=== PATIENT | female | born 1960 | race Caucasian/White ===

== ENCOUNTER 2020-03-13 10:34 | Emergency (ER) | payer MEDICARE, OTHER ==
[~2020-03-13] VITALS: Ht 157.5 cm; Wt 86.2 kg
[~2020-03-13 10:34] MED LIST: AUGMENTIN 500-1 EACH PO; BACTRIM DS TAB1 EACH PO; DESYREL50 MG PO; MISCELLANEOUS; NORCO 5-325 TA1 EACH PO; PROZAC20 MG PO; SEROQUEL 25 MG25 M1 PO; WELLBUTRIN 100100 MG PO; XANAX 0.5 MG0.5 M1 PO
[2020-03-13 11:27] LABS: ABSOLUTE EOSINOPHILS 0.3 thou/uL (0.0-0.7); ABSOLUTE LYMPHOCYTES 1.5 thou/uL (0.8-5.3); ABSOLUTE MONOCYTES 0.6 thou/uL (0.0-1.2); ABSOLUTE NEUTROPHILS 3.2 thou/uL (1.6-8.1); BASOPHILS 0.7 %; EOSINOPHILS 4.8 %; HEMATOCRIT 41.9 % (37.0-47.0); HEMOGLOBIN 14.2 gm/dL (12.0-15.0); LYMPHOCYTES 26.3 %; MCH 30.2 pg (26.0-34.0); MCV 88.9 fL (80.0-100.0); MPV 7.4 fl. (7.2-11.1); NUCLEATED RBCS 0 /100WBC; PLATELET COUNT* 203 thou/uL (150-400); POLYS 58.2 %; RBC 4.71 mil/uL (4.20-5.00); RDW-CV 12.9 % (10.5-14.5); WBC 5.5 thou/uL (4.0-11.0)
[2020-03-13 11:35] LABS: CALCIUM 8.6 mg/dL (8.5-10.1); CREATININE 1.1 mg/dL (0.6-1.3); POTASSIUM 3.7 mmol/L (3.5-5.1)
[2020-03-13 11:37] LABS: PROTIME 10.3 Seconds (9.20-11.50)
[2020-03-13 11:40] LABS: ALBUMIN 3.4 g/dL (3.4-5.0); TOTAL BILIRUBIN 0.2 mg/dL (<0.1-1.0); TOTAL PROTEIN 6.8 g/dL (6.4-8.2)
[2020-03-13 14:00] VITALS: BP 116/80
--- NOTE | 2020-03-15 14:08 | EKG ---
[place] [address] ELECTROCARDIOGRAM REPORT Name: JOSETTE CAT Room: [facility]#: [id number] Admission: 03/13/20 Attend Phys: Discharge: 03/13/20 Date of : 62 Date of Service: 03/13/20 1042 Report #: [id number] THIS REPORT FOR: //name// [facility] ED Test Date: 2020-03-13 Test Time: 10:42:45 Pat Name: JOSETTE CAT Department: Room: Gender: F Endoscopy Rn: CHANDAN : 1960 Requested By: Aye Stephenson Order Number: [id number] Dhara MD: Rafael Interiano Measurements Intervals [place] Rate: 81 P: 33 [place]: 153 QRS: -18 QRSD: 87 T: 33 QT: 373 QTc: 433 Interpretive Statements Sinus rhythm nonspecific t wave changes Borderline left axis deviation Borderline low voltage, extremity leads Compared to ECG 03/18/2017 10:40:24 no change Electronically Signed On 03-15-2020 14:07:55 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
== END 2020-03-13 14:00 | disposition home or self-care (01) ==
LOC: M.ERS 10:34
PROVIDERS: Personal Emergency Response Attendant
DX: R07.89 Other chest pain (principal); Z20.828 Contact with and (suspected) exposure to other viral communicable diseases; Z90.49 Acquired absence of other specified parts of digestive tract

== ENCOUNTER 2020-11-05 08:39 | Emergency (ER) | payer OTHER, MEDICARE ==
[~2020-11-05] VITALS: Ht 157.5 cm; Wt 86.2 kg
[2020-11-05 10:34] LABS: ABSOLUTE BASOPHILS 0.1 thou/uL (0.0-0.2); ABSOLUTE EOSINOPHILS 0.3 thou/uL (0.0-0.7); ABSOLUTE LYMPHOCYTES 1.5 thou/uL (0.8-5.3); ABSOLUTE MONOCYTES 0.5 thou/uL (0.0-1.2); BASOPHILS 1.3 %; EOSINOPHILS 4.1 %; HEMATOCRIT 43.5 % (37.0-47.0); HEMOGLOBIN 14.5 gm/dL (12.0-15.0); LYMPHOCYTES 23.4 %; MCH 29.5 pg (26.0-34.0); MCHC 33.2 g/dL (28.0-37.0); MCV 88.6 fL (80.0-100.0); MONOCYTES 8.5 %; MPV 7.3 fl. (7.2-11.1); NUCLEATED RBCS 0 /100WBC; PLATELET COUNT* 208 thou/uL (150-400); POLYS 62.7 %; RBC 4.91 mil/uL (4.20-5.00); RDW-CV 12.6 % (10.5-14.5); WBC 6.4 thou/uL (4.0-11.0)
[2020-11-05 10:43] LABS: CALCIUM 10.2 mg/dL (8.5-10.1); CREATININE 1.2 mg/dL (0.6-1.3); POTASSIUM 4.2 mmol/L (3.5-5.1)
[2020-11-05 10:48] LABS: ALBUMIN 3.8 g/dL (3.4-5.0); TOTAL BILIRUBIN 0.4 mg/dL (<0.1-1.0); TOTAL PROTEIN 7.2 g/dL (6.4-8.2)
--- NOTE | 2020-11-05 11:52 | EKG ---
[place] [address] ELECTROCARDIOGRAM REPORT Name: JOSTETE CAT Room: [facility]#: [id number] Admission: 11/05/20 Attend Phys: Discharge: Date of : 62 Date of Service: 11/05/20 0843 Report #: [id number] THIS REPORT FOR: //name// 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: : 1960 Requested By: Roman Gustafson Order Number: [id number] MD: Rafael Interiano Measurements Intervals [place] Rate: 79 P: -16 [place]: 172 QRS: -24 QRSD: 83 T: 34 QT: 347 QTc: 398 Interpretive Statements Sinus rhythm nonspecific t wave changes Borderline left axis deviation Borderline low voltage, extremity leads Compared to ECG 03/13/2020 10:42:45 no change Electronically Signed On 11-05-2020 11:52:28 CDT by Rafael Interiano [email or web address] <ELECTRONICALLY SIGNED> By: Rafael Interiano MD, [facility] 11/05/20 1152 0843 0843 Rafael Interiano MD, [facility] /EPI
[2020-11-05] MEDS ORDERED: VISTARIL 25 MG25 M1 PO (12:22)
[2020-11-05 12:35] VITALS: BP 126/78
== END 2020-11-05 12:35 | disposition home or self-care (01) ==
LOC: M.ERS 08:39
PROVIDERS: Physician Assistant
DX: F41.9 Anxiety disorder, unspecified (principal); F32.9 Major depressive disorder, single episode, unspecified; Z79.899 Other long term (current) drug therapy

== ENCOUNTER → 2021-04-07 | Outpatient (CLI) | payer OTHER ==
[~2021-04-07] MED LIST changes: +VISTARIL 25 MG25 M1 PO
== END ==
LOC: M.LAB 11:33
PROVIDERS: ATTEND Internal Medicine Gastroenterology
DX: Z01.812 Encounter for preprocedural laboratory examination (principal); Z20.822 Contact with and (suspected) exposure to COVID-19